=== PATIENT | female | born 1975 | race African-American/Black ===

== ENCOUNTER 2017-06-26 18:22 | Emergency (ER) | payer OTHER ==
[2017-06-26] MEDS: FLUORESCEIN STRIP LEFT EYE (22:13)
[2017-06-26] MEDS: TETRACAINE 0.5% 4 ML OPH BOTH EYES (22:13)
[2017-06-26] MEDS: ACETAMINOPHEN 325 MG TAB PO (22:59)
== END 2017-06-26 23:16 | disposition home or self-care (01) ==
LOC: FTE 18:22
DX: H57.12 Ocular pain, left eye (principal)
CPT/HCPCS: 99283; Z7502